=== PATIENT | male | born 1995 | race Caucasian/White ===

== ENCOUNTER 2024-02-05 06:42 | Emergency (ER) | payer OTHER ==
[~2024-02-05] VITALS: Ht 180.3 cm; Wt 90.4 kg
[2024-02-05 06:57] VITALS: BP 145/89; TEMP 98.1; O2SAT 100
[2024-02-05] MEDS: LIDOCAINE W/EPINEPHRINE 1% 20ML VIAL SC ONE (07:05)
== END 2024-02-05 07:20 | disposition home or self-care (01) ==
LOC: M ED 06:42
DX: S01.111A Laceration without foreign body of right eyelid and periocular area, initial encounter (principal); W01.0XXA Fall on same level from slipping, tripping and stumbling without subsequent striking against object, initial encounter; F10.10 Alcohol abuse, uncomplicated; Y92.410 Unspecified street and highway as the place of occurrence of the external cause; Y93.89 Activity, other specified; Y99.9 Unspecified external cause status